=== PATIENT | male | born 1960 | race Caucasian/White ===

== ENCOUNTER 2017-11-16 09:50 | Emergency (ER) | payer OTHER ==
--- NOTE | 2017-11-16 10:01 | CPEKG ---
Heart Rate: 164 RR Interval: 366 QRSD Interval: 78 QT Interval: 284 QTC Interval: 469 QRS [place]: -53 T Wave [place]: 46 EKG Severity - ABNORMAL ECG - EKG Impression: ATRIAL FIBRILLATION WITH RAPID V-RATE EKG Impression: LEFT ANTERIOR FASCICULAR BLOCK Electronically Signed By: Jordi Flores 16-Nov-2017 13:00:34
[2017-11-16] MEDS ORDERED: NS 1,000 ML IV ONE (10:05)
[2017-11-16] MEDS ORDERED: DILTIAZEM 25 MG/5 ML VIAL IVP ONE (10:06)
[2017-11-16] MEDS ORDERED: NS 50 ML BAG IV ONE (10:12)
[2017-11-16 10:21] LABS: PLATELET COUNT 227 10^3/uL (150-400)
--- NOTE | 2017-11-16 10:22 | EDPHY ---
H & P Stated Complaint: Tachycardia Time Seen by Provider: 11/16/17 09:57 HPI/ROS: CHIEF COMPLAINT: Palpitations and tachycardia HISTORY OF PRESENT ILLNESS: The patient has a history of paroxysmal atrial fibrillation and presents to the ED with complaints of palpitations and tachycardia at the began at 4 o'clock in the morning. The patient reports it has been several years since his last episode of atrial fibrillation. He has no history of coronary artery disease. Patient does take metoprolol and Diovan. He is not chronically anticoagulated. He denies any pleuritic chest pain. He denies asymmetric calf pain or swelling. He denies additional acute complaints. The patient takes 50 mg of metoprolol in the morning and 25 mg at night. He took an extra 50 mg pill of metoprolol this morning. REVIEW OF SYSTEMS: A comprehensive 10 point review of systems is otherwise negative aside from elements mentioned in the history of present illness. Source: Patient Exam Limitations: No limitations - Medical/Surgical History Hx Cardiac Disease: Yes Other PMH: afib. cholesterol. HTN - Social History Smoking Status: Never smoked - Physical Exam Exam: General Appearance: Alert, no distress Eyes: Pupils equal and round no pallor or injection ENT, Mouth: Mucous membranes moist Respiratory: Lungs clear to auscultation bilaterally Cardiovascular: Tachycardic, irregular Gastrointestinal: Abdomen is soft and nontender, no masses, bowel sounds normal Neurological: A&O, normal motor function, normal sensory exam, normal cranial nerves Skin: Warm and dry, no rashes Musculoskeletal: Neck is supple nontender Extremities: symmetrical, full range of motion Constitutional: Initial Vital Signs Temperature (C) 36.7 C 11/16/17 09:50 Heart Rate 106 H 11/16/17 09:50 Respiratory Rate 18 11/16/17 09:50 Blood Pressure 111/94 H 11/16/17 09:50 O2 Sat (%) 97 11/16/17 09:50 O2 Delivery Mode Room Air Allergies/Adverse Reactions: No Known Allergies Allergy (Unverified 11/16/17 09:54) Home Medications: Medication Instructions Recorded Apixaban [Eliquis 30-day Starter 1 kit PO AD #1 kit 11/16/17 Pack] Atorvastatin Calcium [Lipitor 40 40 mg PO 11/16/17 mg (*)] Metoprolol Succinate Xr [Toprol Xl] 100 mg PO 11/16/17 Valsartan/Hctz [Diovan Hct 80/12.5 1 tab PO 11/16/17 mg (*)] Medical Decision Making - Diagnostics EKG Interpretation: EKG: Complete interpretation has been separately recorded in the [facility] archive. Summary impression: Atrial fibrillation/flutter at 164 ED Course/Re-evaluation: The patient presents the ED with atrial fibrillation with rapid ventricular response. The patient is hemodynamically stable. He received 25 mg of IV diltiazem. This resulted in rate control with a heart rate into the 90s with persistent atrial fibrillation. The patient was given oral diltiazem at 11:00 a.m. Heart rate remains in the 90s. [employer] consultation was made with Dr. Domonique Lyons from Cardiology. The patient will be given 5 mg of Eliquis orally. He will begin this twice daily. She recommends the patient begin metoprolol at 50 mg twice a day. The patient has been given her contact information through cardiology office and she will be available to answer any questions that arise today. The plan will be to have the patient be NPO after midnight and to return to the emergency department tomorrow if he continues to be in atrial fibrillation for consideration of KACIE cardioversion. Differential Diagnosis: Differential diagnosis considered includes atrial fibrillation, SVT, ventricular tachycardia, myocardial infarction - Data Points Laboratory Results: Laboratory Results 11/16/17 10:05 11/16/17 10:05 11/16/17 11/16/17 11/16/17 10:15 10:05 10:05 WBC 8.26 10^3/uL 10^3/uL (3.80-9.50) RBC 5.59 10^6/uL 10^6/uL (4.40-6.38) Hgb 17.1 g/dL g/dL (13.7-17.5) Hct 49.4 % % (40.0-51.0) MCV 88.4 fL fL (81.5-99.8) MCH 30.6 pg pg (27.9-34.1) MCHC 34.6 g/dL g/dL (32.4-36.7) RDW 12.1 % % (11.5-15.2) Plt Count 227 10^3/uL 10^3/uL (150-400) MPV 9.8 fL fL (8.7-11.7) Neut % (Auto) 57.0 % % (39.3-74.2) Lymph % (Auto) 31.7 % % (15.0-45.0) [place] % (Auto) 7.4 % % (4.5-13.0) Eos % (Auto) 1.6 % % (0.6-7.6) Baso % (Auto) 1.0 % % (0.3-1.7) Nucleat RBC Rel Count 0.0 % % (0.0-0.2) Absolute Neuts (auto) 4.71 10^3/uL 10^3/uL (1.70-6.50) Absolute Lymphs (auto) 2.62 10^3/uL 10^3/uL (1.00-3.00) Absolute Monos (auto) 0.61 10^3/uL 10^3/uL (0.30-0.80) Absolute Eos (auto) 0.13 10^3/uL 10^3/uL (0.03-0.40) Absolute Basos (auto) 0.08 10^3/uL 10^3/uL (0.02-0.10) Absolute Nucleated RBC 0.00 10^3/uL 10^3/uL (0-0.01) Immature Gran % 1.3 % H % (0.0-1.1) Immature Gran # 0.11 10^3/uL H 10^3/uL (0.00-0.10) Sodium 143 mEq/L mEq/L (135-145) Potassium 4.4 mEq/L mEq/L (3.3-5.0) Chloride 100 mEq/L mEq/L (97-110) Carbon Dioxide 31 mEq/l mEq/l (22-31) Anion Gap 12 mEq/L mEq/L (8-16) BUN 16 mg/dL mg/dL (7-23) Creatinine 1.0 mg/dL mg/dL (0.7-1.3) Estimated GFR > 60 Glucose 155 mg/dL H mg/dL (70-100) Calcium 9.7 mg/dL mg/dL (8.5-10.4) POC Troponin I 0.00 ng/mL ng/mL (0.00-0.08) Medications Given: Discontinued Medications Diltiazem HCl (Cardizem 25 Mg/5 Ml Vial) 25 mg IVP EDNOW ONE Stop: 11/16/17 10:07 Last Admin: 11/16/17 10:19 Dose: 25 mg Diltiazem HCl (Cardizem Immediate Release) 30 mg PO EDNOW ONE Stop: 11/16/17 11:14 Last Admin: 11/16/17 11:30 Dose: 30 mg Sodium Chloride (Ns) 1,000 mls @ 0 mls/hr IV EDNOW ONE; Wide Open PRN Reason: Protocol Stop: 11/16/17 10:06 Last Admin: 11/16/17 10:18 Dose: 1,000 mls Point of Care Test Results: Chemistry 11/16/17 10:15 POC Troponin I 0.00 ng/mL ng/mL (0.00-0.08) Departure - Departure Disposition: Home, Routine, Self-Care Clinical Impression: Atrial fibrillation Condition: Good Instructions: Apixaban (By mouth) Additional Instructions: 1. Please take metoprolol 50 mg twice daily. 2. Please begin Eliquis. 3. You may contact our on-call chief school finance officer Dr. Lyons, through their office, today should you have any questions. Their telephone number is [phone]. 4. I recommend avoiding excess alcohol consumption. 5. Please return to the emergency department tomorrow at 9 o'clock in the morning if you continue to be in atrial fibrillation. Nothing to eat or drink after midnight this evening. 6. Return to the ED sooner for any chest pain, shortness of breath, markedly elevated heart rate or other concerns. Referrals: JESSEE SALCEDO MD [Other] - As per Instructions Prescriptions: Apixaban [Eliquis 30-day Starter Pack] 1 kit PO AD #1 kit
[2017-11-16] MEDS ORDERED: DILTIAZEM 30 MG TAB PO ONE (11:13)
[2017-11-16] MEDS ORDERED: APIXABAN 5 MG TAB PO ONE (11:41)
[2017-11-16 12:14] VITALS: BP 116/90
== END 2017-11-16 12:13 | disposition home or self-care (01) ==
DX: I48.91 Unspecified atrial fibrillation (principal); I10 Essential (primary) hypertension; E86.9 Volume depletion, unspecified
CPT/HCPCS: 84484-PO; 96374